=== PATIENT | female | born 1975 | race African-American/Black ===

== ENCOUNTER 2016-12-24 23:34 | Emergency (ER) | payer MEDICARE, OTHER ==
[~2016-12-24] VITALS: Ht 165.1 cm; Wt 83.9 kg
[~2016-12-24 23:34] MED LIST: COMPAZINE10 MG ORAL; PERCOCET 5-3251 EACH ORAL; PERCOCET1 TAB ORAL; PREDNISONE20 MG ORAL; PRENATAL MULTI1 EAC1 PO; ZOFRAN ODT4 MG ORAL; ZOFRAN ODT8 MG ORAL
[2016-12-24 23:54] VITALS: BP 132/92
[2016-12-25] MEDS ORDERED: LORazepam Inj 2mg/ml 1ml IM ONE (00:15)
--- NOTE | 2016-12-25 00:20 | Emergency Room Report ---
History of Present Illness General Chief Complaint: Dyspnea/Respdistress Source: Patient Present Illness HPI 41YOF walk-in with 3-4 days of palpitations Has happened before History of anxiety Denies chest pain, SOB, abd pain, fever/chills, headache Now tonight with nausea w/out vomiting No abd pain No sick contacts, diarrhea Denies ETOH, smoking, drugs Denies PMHx or PSHx Allergies: Coded Allergies: METOCLOPRAMIDE (Verified Allergy, Mild, Shortness of Breath, 12/24/16) MORPHINE (Verified Allergy, Mild, Hives, 12/24/16) Patient History Past Medical History: psych hx Past Surgical History: none Pertinent Family History: none Social History: Denies: alcohol use, drug use, smoking Last Menstrual Period: n/a Now: No Immunizations: UTD Reviewed Nursing Documentation: PMH: Agreed, PSxH: Agreed Nursing Documentation-PMH Past Medical History: No History, Except For Hx Asthma: Yes Review of Systems All Other Systems: negative except mentioned in HPI Physical Exam Vital Signs Date Time Temp Pulse Resp B/P Pulse Ox O2 Delivery O2 Flow Rate FiO2 12/24/16 23:45 98.4 122 22 132/92 93 Room Air 12/24/16 23:54 2.0 Sp02 EP Interpretation: reviewed, normal General Appearance: normal inspection, well appearing, no apparent distress, alert, GCS 15, non-toxic Head: normocephalic, atraumatic Eyes: bilateral eye EOMI, bilateral eye PERRL ENT: normal ENT inspection, hearing grossly normal, normal voice Neck: normal inspection, full range of motion, supple, no bony tend Respiratory: normal inspection, lungs clear, normal breath sounds, no respiratory distress, no retraction, no wheezing Cardiovascular #1: no edema, tachycardia Gastrointestinal: normal inspection, normal bowel sounds, non tender, soft, no guarding, no hernia Genitourinary: no CVA tenderness Musculoskeletal: normal inspection, back normal, normal range of motion, Santana' s Sign negative Neurologic: normal inspection, alert, oriented x3, responsive, precision instrument maker III-XII nml as tested, motor strength/tone normal, speech normal Psychiatric: normal inspection, judgement/insight normal, mood/affect normal Skin: normal inspection, normal color, no rash Medical Decision Making Diagnostic Impression: Primary Impression: Sinus tachycardia Additional Impressions: Palpitation Nausea Cocaine abuse ER Course ECG sinus tach Troponin 0 Utox + cocaine Ativan given Patient felt better Advised against cocaine abuse DC home EKG Diagnostic Results Rate: tachycardiac Rhythm: NSR ST Segments: no acute changes ASA given to the pt in ED: No Last Vital Signs Date Time Temp Pulse Resp B/P Pulse Ox O2 Delivery O2 Flow Rate FiO2 12/24/16 23:54 98.4 22 132/92 100 Nasal Cannula 2.0 12/24/16 23:45 122 Status: improved Disposition: HOME, SELF-CARE BISHNU GORDON M.D. Dec 25, 2016 00:20
[2016-12-25 01:00] VITALS: BP 116/76
[2016-12-25] MEDS ORDERED: LORazepam Inj 2mg/ml 1ml IV ONE (01:45)
[2016-12-25 02:26] LABS: MEAN CORPUSCULAR HEMOGLOBIN 30.7 PG (27.0-31.0); MEAN CORPUSCULAR HGB CONC 33.9 G/DL (32.0-36.0); MEAN CORPUSCULAR VOLUME 90 FL (80-99); MEAN PLATELET VOLUME 8.4 FL (6.5-10.1); PLATELET COUNT 80 K/UL (150-450); RED BLOOD COUNT 5.41 M/UL (4.20-5.40); RED CELL DISTRIBUTION WIDTH 13.4 % (11.6-14.8); WHITE BLOOD COUNT 11.1 K/UL (4.8-10.8)
[2016-12-25 02:41] LABS: TROPONIN I < 0.30 ng/mL (<=0.30)
[2016-12-25 02:55] LABS: ALANINE AMINOTRANSFERASE 32 U/L (3-33); ALBUMIN/GLOBULIN RATIO 0.9 (1.0-2.7); ANION GAP 17 (5-15); ASPARTATE AMINO TRANSFERASE 49 U/L (5-40); CALCIUM 9.8 mg/dL (8.6-10.2); CARBON DIOXIDE 19 mEQ/L (20-30); CHLORIDE 99 mEQ/L (98-107); CREATININE 1.1 mg/dL (0.5-0.9); GLOMERULAR FILTRATION RATE > 60 mL/min (>60); HEMOLYSIS 197; POTASSIUM 5.2 mEQ/L (3.4-4.9); SODIUM 135 mEQ/L (135-145); TOTAL PROTEIN 8.2 g/dL (6.6-8.7)
[2016-12-25 03:05] LABS: CKMB < 1.5 ng/mL (< 3.8)
[2016-12-25] MEDS ORDERED: LORazepam 1mg tab ORAL ONE (03:15)
[2016-12-25 03:23] VITALS: BP 116/76
--- NOTE | 2016-12-25 11:15 | Diagnostic Imaging Report ---
Indication: SOB Technique: One view of the chest Comparison: none Findings: Lungs and pleural spaces are clear. Heart size is normal Impression: No acute process
== END 2016-12-25 03:23 | disposition home or self-care (01) ==
LOC: EMR 23:53
DX: R00.0 Tachycardia, unspecified (principal); R00.2 Palpitations; R11.0 Nausea; F14.10 Cocaine abuse, uncomplicated; J45.909 Unspecified asthma, uncomplicated; Z88.6 Allergy status to analgesic agent
CPT/HCPCS: 36415; 71010; 80053; 80300; 82550; 82553; 84484; 85025; 93005; 96372; 99283